=== PATIENT | male | born 1980 | race Caucasian/White ===

== ENCOUNTER 2016-09-24 10:46 | Emergency (ER) | payer MEDICAID ==
[~2016-09-24] VITALS: Wt 73.5 kg
[~2016-09-24 10:46] MED LIST: IBUP-1542 PO
[2016-09-24 12:19] LABS: ADD SCAN DIFF NO
[2016-09-24 12:23] LABS: BASOPHIL # 0.1 10^3/ul (0.0-0.1); BASOPHILS % 1.5 % (0.0-2.0); EOSINOPHILS # 0.2 10^3/ul (0.0-0.5); EOSINOPHILS % 2.8 % (0.0-7.0); HEMATOCRIT 30.8 % (42.0-52.0); HEMOGLOBIN 10.3 g/dl (14.0-18.0); LYMPHOCYTES # 1.8 10^3/ul (0.8-2.9); LYMPHOCYTES % 22.7 % (15.0-51.0); MEAN CORPUSCULAR HEMOGLOBIN 30.6 pg (29.0-33.0); MEAN CORPUSCULAR HGB CONC 33.4 g/dl (32.0-37.0); MEAN CORPUSCULAR VOLUME 91.4 fl (82.0-101.0); MEAN PLATELET VOLUME 9.2 fl (7.4-10.4); MONOCYTE # 0.6 10^3/ul (0.3-0.9); MONOCYTES % 7.7 % (0.0-11.0); NEUTROPHIL # 5.1 10^3/ul (1.6-7.5); NEUTROPHILS % 64.8 % (39.0-77.0); PLATELET COUNT 440 10^3/UL (140-415); RED BLOOD COUNT 3.37 10^6/ul (4.70-6.10); RED CELL DISTRIBUTION WIDTH 13.7 % (11.5-14.5); WHITE BLOOD COUNT 7.9 10^3/ul (4.8-10.8)
[2016-09-24 12:38] LABS: ALBUMIN 2.8 g/dl (3.3-4.9)
[2016-09-24 12:39] LABS: POTASSIUM 5.3 mmol/L (3.5-5.1)
[2016-09-24 12:41] LABS: ALBUMIN/GLOBULIN RATIO 0.71; CREATININE 1.81 mg/dl (0.61-1.24); TOTAL PROTEIN 6.7 g/dl (6.1-8.1)
[2016-09-24 12:42] LABS: CALCIUM 8.3 mg/dl (8.4-10.2)
[2016-09-24] MEDS ORDERED: LANT3I SC (12:44)
[2016-09-24] MEDS ORDERED: INSU100C SQ (12:44)
[2016-09-24 12:45] LABS: PROTIME 13.2 Sec (12.2-14.2)
[2016-09-24] MEDS ORDERED: LIDOCAINE 1% (MDV) 20 ML INJ ONE (13:23)
--- NOTE | 2016-09-24 14:05 | RADRPT ---
PROCEDURE: XR Chest. CLINICAL INDICATION: Abdominal Pain, recent Perma-Cath removal TECHNIQUE: Single frontal view of the chest was obtained. COMPARISON: None. FINDINGS: There is mild cardiomegaly. There is prominence of interstitial markings throughout the right lung which may be due to a diffuse infiltrate. There is a 2.3 cm opacity at the right costophrenic angle which may be due to subsegmental atelectasis and / or a more focal infiltrate. There is no significant pleural effusion or pneumothorax. IMPRESSION: Mild cardiomegaly with diffuse prominence of interstitial markings at the right lung which are nonsp ecific, but may be due to a large infiltrate. 2.3 cm poorly circumscribed opacity at the right costophrenic angle may be due to subsegmental atele ctasis and / or a more focal infiltrate. There is no Perma-Cath. RPTAT: EE Physician Jatinder Date Time Electronically viewed and signed by Physician Jatinder on 09/24/2016 14:05 /
[2016-09-24 14:38] VITALS: BP 167/107; PULSE 85; RESP 20; TEMP 98.5
--- NOTE | 2016-09-24 14:49 | ERD ---
ER Documentation Chief Complaint Date/Time DATE: 09/24/16 TIME: 14:44 Chief Complaint right upper talat cath to be removed. no issues HPI 36-year-old man referred here by his editor at large for hemodialysis catheter removal. A hemodialysis catheter was placed months ago in the right upper chest because patient required dialysis secondary to long-standing uncontrolled hypertension. Patient's last hemodialysis session was a few months ago. Patient denies calf or arm swelling, no chest pain or shortness of breath, no headache or blurry vision, no fevers or chills, no diaphoresis. ROS All systems reviewed and are negative except as per history of present illness. Medications Home Meds Reported Medications Insulin Glargine* (Lantus*) 100 Unit/Ml Soln, 25 UNIT SC QHS, #1 VIAL 09/24/16 Insulin Lispro (Humalog) 100 Unit/1 Ml Cartridge, 8 UNIT SQ AC MEALS 09/24/16 Discontinued Scripts Ibuprofen* (Motrin*) 600 Mg Tab, 600 MG PO Q6, #20 TAB Prov:DENISE KEANE MD 06/09/16 Allergies Allergies: Coded Allergies: No Known Allergy (Unverified , 09/24/16) PMhx/Soc Previous hemodialysis requirement, hypertension, diabetes mellitus History of Surgery: No Anesthesia Reaction: No Hx Neurological Disorder: No Hx Respiratory Disorders: No Hx Cardiac Disorders: No (HTN) Hx Psychiatric Problems: No Hx Miscellaneous Medical Probl: No (IDDM) Hx Alcohol Use: No Hx Substance Use: No Hx Tobacco Use: No Smoking Status: Unknown if ever smoked FmHx Family History: diabetes Physical Exam Vitals Vital Signs Date Time Temp Pulse Resp B/P Pulse Ox O2 Delivery O2 Flow Rate FiO2 09/24/16 14:38 98.5 85 20 167/107 100 Room Air 09/24/16 14:11 98.8 94 20 178/112 99 Room Air 09/24/16 10:49 98.8 104 20 108/71 98 Physical Exam GENERAL: Well-developed, well-nourished, well-hydrated, in no apparent distress , looks nontoxic in appearance HEENT: Moist mucous membranes, pink conjunctiva, no cervical spine tenderness or step-off deformities, no goiter, no jaundice or icterus, extraocular movements intact without pain. No submandibular induration, and no pharyngeal erythema NEURO: Alert and oriented 3, cranial nerves II through XII intact bilaterally, pupils equal round reactive to light, no focal deficits or facial asymmetry, sensation intact distally Strength 5/5 in upper and lower extremities bilaterally CARDIAC: Regular rate and rhythm, no murmurs rubs or gallops LUNGS: Clear bilaterally no wheezing crackles or stridor ABDOMEN: Soft nontender, no guarding, no rigidity, no rebound, no psoas sign no obturator sign. Normoactive bowel sounds SKIN: Warm and dry to touch, no abrasions, contusions, or hematomas, no lacerations, no ecchymosis, no target lesions, and without ulcers EXTREMITIES: No clubbing cyanosis or edema, calves are bilaterally symmetrical, no Homans sign, no popliteal cord sign. Distal pulses equal and bilateral. Hemodialysis catheter placed in the right chest without skin erythema or induration PSYCH: Normal affect without agitation or irritability Result Diagram: 09/24/16 1210 09/24/16 1210 Results 24 hrs Laboratory Tests Test 09/24/16 12:10 White Blood Count 7.910^3/ul Red Blood Count 3.3710^6/ul Hemoglobin 10.3g/dl Hematocrit 30.8% Mean Corpuscular Volume 91.4fl Mean Corpuscular Hemoglobin 30.6pg Mean Corpuscular Hemoglobin Concent 33.4g/dl Red Cell Distribution Width 13.7% Platelet Count 16430^3/UL Mean Platelet Volume 9.2fl Neutrophils % 64.8% Lymphocytes % 22.7% Monocytes % 7.7% Eosinophils % 2.8% Basophils % 1.5% Nucleated Red Blood Cells % 0.0/100WBC Neutrophils # 5.110^3/ul Lymphocytes # 1.810^3/ul Monocytes # 0.610^3/ul Eosinophils # 0.210^3/ul Basophils # 0.110^3/ul Nucleated Red Blood Cells # 0.010^3/ul Prothrombin Time 13.2Sec Prothrombin Time Ratio 1.0 INR International Normalized Ratio 1.00 Sodium Level 139mmol/L Potassium Level 5.3mmol/L Chloride Level 105mmol/L Carbon Dioxide Level 27mmol/L Anion Gap 12 Blood Urea Nitrogen 32mg/dl Creatinine 1.81mg/dl Glucose Level 330mg/dl Calcium Level 8.3mg/dl Total Bilirubin 0.0mg/dl Direct Bilirubin 0.00mg/dl Indirect Bilirubin 0.0mg/dl Aspartate Amino Transf (AST/SGOT) 76IU/L Alanine Aminotransferase (ALT/SGPT) 79IU/L Alkaline Phosphatase 450IU/L Total Protein 6.7g/dl Albumin 2.8g/dl Globulin 3.90g/dl Albumin/Globulin Ratio 0.71 Current Medications Medications (Trade) Dose Ordered Sig/Jaziel Route PRN Reason Start Time Stop Time Status Last Admin Dose Admin Lidocaine (Xylocaine 1% (Mdv) 20 ml) 20 ml STK-MED ONCE .ROUTE 09/24/16 13:23 09/24/16 13:24 DC Procedures/MDM CBC was unremarkable, electrolytes revealed mild hyperkalemia and kidney disease with a BUN/creatinine of 32/1.8, blood sugar elevated, liver function tests revealed mild transaminitis, coagulation profile was normal. I ordered radiology to remove the hemodialysis catheter and to rule out any vascular thrombosis post removal. Please refer to IR report, hemodialysis catheter was successfully removed. Site was inspected by me post removal and there is no discharge or bleeding. Chest X-ray 1V Interpreted by me: Soft Tissue: No acute abnormalities Bones: No acute abnormalities Mediastinum/Cardiac Silhouette/Lungs: No acute abnormalities Patient has a history of kidney disease necessitating hemodialysis and has mild electrolyte abnormalities found today and elevated liver function tests. I recommended he follow-up with his editor at large in the next 1-2 days for repeat labs and reevaluation. Patient is asymptomatic at this time, although he does have hypertension and has yet to take his morning antihypertensives. I recommended he use his medications as soon as he gets home. Differential diagnoses considered, included but not limited to acute coronary syndrome, pulmonary embolism, aortic dissection, abdominal aortic aneurysm, sepsis, stroke, meningitis, encephalitis, pneumonia, appendicitis, cholecystitis , bowel obstruction, pyelonephritis, nephrolithiasis, cystitis, as well as metabolic, hematologic, and electrolyte abnormalities. As well as abscess, cellulitis, fractures, and dislocations. Patient feels much better at this time, and vital signs are normal, symptoms have improved. I did give strict instructions to return to the ED if symptoms continue or worsen, patient will otherwise follow-up with primary care physician. Patient understood instructions and agreed to plan. Departure Diagnosis: Primary Impression: Dialysis catheter clot or failure Additional Impressions: Hypertension Hypertension type: essential hypertension Qualified Code: I10 - Essential hypertension Acute kidney injury superimposed on CKD Condition: Good Patient Instructions: IV Catheter Site Care JOE QUEZADA MD Sep 24, 2016 14:49
== END 2016-09-24 14:41 | disposition home or self-care (01) ==
LOC: E/R 10:46
DX: T82.868A Thrombosis due to vascular prosthetic devices, implants and grafts, initial encounter (principal); I12.9 Hypertensive chronic kidney disease with stage 1 through stage 4 chronic kidney disease, or unspecified chronic kidney disease; N18.9 Chronic kidney disease, unspecified; N17.9 Acute kidney failure, unspecified; E11.9 Type 2 diabetes mellitus without complications; Y82.8 Other medical devices associated with adverse incidents
CPT/HCPCS: 36589; 71010; 80053; 85025; 85610; Z7610